=== PATIENT | male | born 1965 | race African-American/Black ===

== ENCOUNTER 2019-11-12 01:56 | Emergency (ER) | payer MEDICAID ==
[~2019-11-12] VITALS: Ht 185.4 cm; Wt 79.5 kg
[2019-11-12 06:02] VITALS: BP 105/77
== END 2019-11-12 06:04 | disposition home or self-care (01) ==
LOC: EMS 01:58
DX: F10.129 Alcohol abuse with intoxication, unspecified (principal); F17.210 Nicotine dependence, cigarettes, uncomplicated; Y90.9 Presence of alcohol in blood, level not specified
CPT/HCPCS: Z7502